=== PATIENT | male | born 1990 | race Hispanic/Latino ===

== ENCOUNTER 2022-04-27 13:23 | Emergency (ER) | payer OTHER ==
[~2022-04-27] VITALS: Ht 175.3 cm; Wt 74.8 kg
[2022-04-27] MEDS ORDERED: IBUP-2070 PO (14:21)
[2022-04-27] MEDS ORDERED: D-ME118S47 PO (14:21)
[2022-04-27 14:23] VITALS: BP 130/81
== END 2022-04-27 14:29 | disposition home or self-care (01) ==
LOC: EDH 13:23
DX: U07.1 COVID-19 (principal); J45.909 Unspecified asthma, uncomplicated
CPT/HCPCS: 99283; 87635; 87804 ×2; C9803